=== PATIENT | female | born 2000 | race Caucasian/White ===

== ENCOUNTER 2018-01-20 15:47 | Emergency (ER) | payer OTHER ==
[2018-01-20] MEDS ORDERED: NACL 0.9% 1000 ML 2,000 ML ONE (20:48)
[2018-01-20] MEDS ORDERED: NACL 0.9% 1000 ML 2,000 ML IV ONE (21:03)
--- NOTE | 2018-01-20 21:34 | Emergency Department Report ---
ED Chest Pain HPI - General Chief Complaint: Chest Pain Stated Complaint: CHEST PAIN Time Seen by Provider: 01/20/18 21:15 Source: patient Mode of arrival: Ambulatory Limitations: No Limitations - History of Present Illness Initial Comments: Hilary is a very pleasant 17-year-old female who presents with chest pain fast heart rate and headaches. 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 She was referred to space planner. She was prescribed medication to slow her heart rate down. However she did not take this medication. She's had normal heart rate since. Recently over the last 3 weeks she's had intermittent chest pain diffuse on both sides of her chest. She's noticed fast heart rate. She also has frequent headaches over the last few weeks. Headaches improved with ibuprofen. Her PCP is Dr. Anne in [facility]. She is also followed by [facility]. She has had weight gain recently. Medications: Ibuprofen, Flovent, albuterol No known family history of premature cardiac disease. She thinks grandparents may have had heart disease. MD Complaint: chest pain -: week(s) (3) Onset: during rest Pain Location: substernal, left chest, right chest Severity scale (0 -10): 5 Quality: sharp Consistency: intermittent Improves With: other (laying flat) Worsens With: nothing re: other (intermittent headaches) Other Symptoms: denies: cough, fever, syncope, rash, acid taste in mouth, leg swelling, palpitations, burping - Related Data Previous Rx's Medication Instructions Recorded Last Taken Type traMADol [Ultram 50 MG tab] 50 mg PO Q6HR PRN #10 tablet 01/21/18 Unknown Rx Allergies Allergy/AdvReac Type Severity Reaction Status Date / Time No Known Allergies Allergy Verified 01/20/18 20:51 Heart Score - HEART Score History: Slightly suspicious EKG: Normal Age: < 45 Risk factors: No known risk factors Troponin: < normal limit HEART Score: 0 ED Review of Systems ROS: Stated complaint: CHEST PAIN Other details as noted in HPI Comment: All other systems reviewed and negative Constitutional: denies: fever, malaise Respiratory: denies: cough Cardiovascular: chest pain, palpitations ED Past Medical Hx - Past Medical History Previous Medical History?: Yes Hx Diabetes: (PRE) Hx Asthma: Yes - Surgical History Additional Surgical History: OVARY TUMORS - Family History Family history: other (grandparents with heart disease) - Social History Smoking Status: Never Smoker Substance Use Type: None Other Social History: Patient is , she attends high school at [employer]. She lives with multiple family members. She works part-time as a nanny - Medications Home Medications: Home Medications Medication Instructions Recorded Confirmed Last Taken Type traMADol [Ultram 50 MG tab] 50 mg PO Q6HR PRN #10 tablet 01/21/18 Unknown Rx ED Physical Exam - General Limitations: No Limitations General appearance: alert, in no apparent distress - Head Head exam: Present: atraumatic, normocephalic - Eye Eye exam: Present: normal appearance - ENT ENT exam: Present: mucous membranes moist - Neck Neck exam: Present: normal inspection. Absent: tenderness - Respiratory Respiratory exam: Present: normal lung sounds bilaterally. Absent: respiratory distress, wheezes - Cardiovascular Cardiovascular Exam: Present: normal rhythm, tachycardia, normal heart sounds. Absent: bradycardia, systolic murmur, diastolic murmur, rubs, gallop - GI/Abdominal GI/Abdominal exam: Present: soft, normal bowel sounds. Absent: distended, tenderness, guarding, rebound - Extremities Exam Extremities exam: Present: normal inspection - Back Exam Back exam: Present: normal inspection - Neurological Exam Neurological exam: Present: alert, oriented X3 - Psychiatric Psychiatric exam: Present: normal affect, normal mood - Skin Skin exam: Present: warm, dry, intact, normal color. Absent: rash ED Course Vital Signs 01/20/18 01/20/18 01/20/18 15:52 20:39 20:40 Temperature 98.9 F 98.5 F Pulse Rate 119 H 120 H Respiratory 18 18 18 Rate Blood Pressure 148/89 Blood Pressure 149/92 [Left] O2 Sat by Pulse 100 99 99 Oximetry 01/20/18 23:25 Temperature Pulse Rate 110 H Respiratory 16 Rate Blood Pressure Blood Pressure 148/96 [Left] O2 Sat by Pulse 99 Oximetry ED Medical Decision Making - Lab Data Result diagrams: 01/20/18 21:59 01/20/18 21:59 - EKG Data -: EKG Interpreted by Fl EKG shows normal: axis, intervals, QRS complexes, ST-T waves Rate: tachycardia - EKG Data 01/20/18 21:35 EKG obtained 1601 Sinus tachycardia Rate 110 beats a minute normal axis normal intervals no ST-T signs of ischemia no signs of pericarditis no ST elevation - Medical Decision Making Hilary is a healthy 17-year-old female she presents with chest pain and headache. D-dimer within normal limits. TSH within normal limits. Chest pain improves when she lays flat. CTA negative for pulmonary embolism normal heart size no effusion. She WAS given reassurance. I prescribed tramadol. She'll follow up with her PCP within a week. SUSPECT tension headache Critical care attestation.: If time is entered above; I have spent that time in minutes in the direct care of this critically ill patient, excluding procedure time. ED Disposition Clinical Impression: Tension headache, Chest pain Disposition: TO HOME OR SELFCARE Is pt being admited?: No Does the pt Need Aspirin: No Condition: Stable Instructions: Chest Pain (ED), Tension Headache (ED) Prescriptions: traMADol [Ultram 50 MG tab] 50 mg PO Q6HR PRN #10 tablet PRN Reason: Pain Referrals: PRIMARY CARE, [Primary Care Provider] - 3-5 Days Forms: Work/School Release Form(ED) Time of Disposition: 02:00
[2018-01-20 22:12] LABS: Basophils # (Auto) 0.1 K/mm3 (0.0-0.1); Basophils % (Auto) 0.7 % (0.0-1.8); Eosinophils # (Auto) 0.3 K/mm3 (0.0-0.4); Eosinophils % (Auto) 2.3 % (0.0-4.3); Lymphocytes # (Auto) 3.3 K/mm3 (1.2-5.4); Lymphocytes % (Auto) 28.2 % (13.4-35.0); Mean Corpuscular HGB Conc 33 % (30-34); Mean Corpuscular Hemoglobin 28 pg (28-32); Mean Corpuscular Volume 85 fl (79-97); Monocytes % (Auto) 8.7 % (0.0-7.3); Platelet Count 319 K/mm3 (140-440); Red Blood Count 4.95 M/mm3 (3.65-5.03); Red Cell Distribution Width 13.7 % (13.2-15.2)
[2018-01-20 22:16] LABS: Amphetamine Screen,Urine PRESUMPTIVE NEGATIVE; Benzodiazepines Screen,Urine PRESUMPTIVE NEGATIVE; Cannabinoid Screen,Urine PRESUMPTIVE NEGATIVE; Cocaine Screen,Urine PRESUMPTIVE NEGATIVE; Methadone Screen,Urine PRESUMPTIVE NEGATIVE; Opiate Screen,Urine PRESUMPTIVE NEGATIVE
[2018-01-20 22:30] LABS: Alanine Aminotransferase 19 units/L (7-56); BUN/Creatinine Ratio 10; Blood Urea Nitrogen 6 mg/dL (7-17); Calcium 8.5 mg/dL (8.4-10.2); Hemolysis Index 3
[2018-01-20 23:25] VITALS: BP 148/96
[2018-01-20] MEDS ORDERED: ULTRAM PO ONE (23:31)
--- NOTE | 2018-01-21 01:45 | Cat Scan Report ---
FINAL REPORT EXAM: CT ANGIO CHEST HISTORY: tachycardia COMPARISON: None available. TECHNIQUE: Contiguous axial images were obtained. Additional sagittal and coronal reformatted images were obtained. Administration of IV contrast given per institution protocol. Images submitted for interpretation. 100 cc Omnipaque 350. Max intensity projection images. FINDINGS: Heart upper limits of normal in size. Thoracic aorta is normal in caliber. No dissection. No pulmonary embolus. Thymic remnant is present. The no pathologically enlarged intrathoracic or axillary lymph nodes. Mild subsegmental atelectasis at the dependent portions of the lungs. No dense airspace consolidation or pleural effusion. Bony thorax is intact. Fatty infiltration of the liver. IMPRESSION: No pulmonary embolus. Mild atelectasis at the lung bases. No acute infiltrates or effusions.
== END 2018-01-20 21:30 | disposition home or self-care (01) ==
LOC: ED 15:47
DX: R07.89 Other chest pain (principal); G44.209 Tension-type headache, unspecified, not intractable
CPT/HCPCS: 36415; 80053; 80307; 84443; 84484; 84703; 85025; 85379; 93005; 93010; 96360; 99284; J7030